=== PATIENT | female | born 1960 | race American Indian/Alaskan Native ===

== ENCOUNTER 2017-06-20 16:14 | Emergency (ER) | payer MEDICAID ==
[2017-06-20 16:43] VITALS: BP 165/68
--- NOTE | 2017-06-20 19:06 | Emergency Department Report ---
ED Neck Pain HPI Chief Complaint: Neck Pain/Injury Stated Complaint: BACK PAIN Time Seen by Provider: 06/20/17 18:37 Duration: patient's been having right-sided neck pain radiation to the right arm for approximately a week and a half. Patient's been on tramadol with no improvement of pain. Severity: moderate Mechanism: Unsure Symptoms: Yes Pain with Movement, Yes Radiation to Right Upper Ext, Yes Numbness , No Radiation to Left Upper Ext, No Weakness, No Previous History ED Review of Systems ROS: Stated complaint: BACK PAIN Other details as noted in HPI Comment: All other systems reviewed and negative ED Past Medical Hx - Past Medical History Hx Hypertension: Yes Additional medical history: HIGH CHOLETEROL - Surgical History Additional Surgical History: 2008, torn ligamnet on left side knee. tubal ligation - Social History Smoking Status: Never Smoker Substance Use Type: None - Medications Home Medications: Home Medications Medication Instructions Recorded Confirmed Last Taken Type Amlodipine Besylate [Norvasc] 10 mg PO DAILY 12/20/12 06/15/13 12/18/12 History Ibuprofen [Motrin 800 MG tab] 800 mg PO TID PRN 12/20/12 06/15/13 12/19/12 History Lisinopril [Zestril TAB] 20 mg PO QDAY 12/20/12 06/15/13 12/18/12 History Ciprofloxacin HCl [Cipro] 500 mg PO Q12H #6 tab 06/15/13 Unknown Rx HYDROcodone/APAP 5-325 [[place] 1 each PO Q6HR PRN #15 tablet 06/15/13 Unknown Rx 5/325 mg] Methocarbamol [Robaxin] 750 mg PO BID #14 tab 06/15/13 Unknown Rx Clindamycin [Clindamycin CAP] 300 mg PO Q6HR #28 cap 10/03/15 Unknown Rx Ketorolac [Toradol] 10 mg PO Q6H PRN #20 tablet 10/03/15 Unknown Rx Silver Sulfadiazine 400 gm TP BID #1 cream..g. 10/03/15 Unknown Rx HYDROcodone/APAP 7.5-325 [[place] 1 each PO Q8HR PRN #10 tablet 02/18/16 Unknown Rx 7.5-325 mg TAB] Ibuprofen [Motrin] 800 mg PO Q8HR PRN #14 tablet 02/18/16 Unknown Rx HYDROcodone/APAP 5-325 [[place] 1 each PO Q6HR PRN #12 tablet 06/20/17 Unknown Rx 5/325] Ibuprofen [Motrin] 800 mg PO Q8HR PRN #20 tablet 06/20/17 Unknown Rx Neck Pain Exam - Exam General: Vital signs noted. No distress. Alert and acting appropriately. HEENT: No Facial Pain, No Scalp Tenderness, No Contusion, No Abrasion, No Laceration Neck Pain: No Midline Tenderness, No Right Paraspinal Tenderness, No Left Paraspinal Tenderness, No Right Trapezius Tenderness, No Left Trapezius Tenderness, No Pain with Rotation Right, No Pain with Rotation Left, No Pain with Extension, No Pain with Flexion, No pain with R Lateral Flexion, No Pain with L Lateral Flexion Chest: Yes Clear Lung Sounds, No Pain with Respirations Heart: Yes Regular, No Murmur Back: No Thoracic Tenderness, No Lumbar Tenderness Neuro: No Numbness, No Weakness, No Normal Reflexes, No Radicular Deficits ED Course Vital Signs 06/20/17 16:39 Temperature 97.9 F Pulse Rate 97 H Respiratory 16 Rate Blood Pressure 165/68 O2 Sat by Pulse 95 Oximetry ED Medical Decision Making - Medical Decision Making Patient does have a cervical radiculopathy-type symptoms. Patient is diabetic and cannot get steroids. Patient be started on stronger pain meds but will be referred to orthopedics Critical care attestation.: If time is entered above; I have spent that time in minutes in the direct care of this critically ill patient, excluding procedure time. ED Disposition Clinical Impression: Cervical radiculopathy Disposition: TO HOME OR SELFCARE Is pt being admited?: No Does the pt Need Aspirin: No Condition: Stable Instructions: Cervical Radiculopathy (ED) Prescriptions: HYDROcodone/APAP 5-325 [[place] 5/325] 1 each PO Q6HR PRN #12 tablet PRN Reason: Pain Ibuprofen [Motrin] 800 mg PO Q8HR PRN #20 tablet PRN Reason: Pain Referrals: YARELIS YANG MD [Staff Physician] - 3-5 Days
[2017-06-20] MEDS ORDERED: TORADOL IM ONE (19:07)
== END 2017-06-20 19:13 | disposition home or self-care (01) ==
LOC: ED 16:14
DX: M54.12 Radiculopathy, cervical region (principal); I10 Essential (primary) hypertension; E78.00 Pure hypercholesterolemia, unspecified; Z98.51 Tubal ligation status
CPT/HCPCS: 99282

== ENCOUNTER 2017-06-30 12:48 | Outpatient (CLI) | payer MEDICAID ==
--- NOTE | 2017-06-30 14:35 | XRay Report ---
RIGHT SHOULDER, 3 VIEWS: HISTORY: Shoulder pain, arm pain. Normal bone mineralization. There is moderate acromioclavicular osteoarthritis. Minimal osteoarthritic changes at the glenohumeral joint. No evidence for fracture, dislocation or bone lesion. The humeral head appears slightly low riding with respect to the glenoid of the right scapula. This could indicate laxity of the joint space or joint effusion. IMPRESSION: Osteoarthritis. Low riding humeral head as described above. Please correlate with the patient. This could be further evaluated with MRI right shoulder if needed.
--- NOTE | 2017-07-01 00:38 | XRay Report ---
FINAL REPORT PROCEDURE: XR SPINE CERVICAL 2-3V TECHNIQUE: Cervical spine radiographs, minimum of four views, including AP, lateral, swimmer's, and odontoid views. HISTORY: Cervical radicular pain. COMPARISON: No prior studies are available for comparison. FINDINGS: Alignment: Minimal retrolisthesis at C2-3 which is not appreciated on swimmer's view. Vertebral body heights/Disk spaces: Moderate bridging osteophytes at C5-6. Smaller osteophytes at other levels. Fracture(s): Subtle lucency about the dens on lateral view, not included on swimmer's view and difficult to appreciate on open-mouth odontoid view. Neural foramina: Normal. Facets: Normal. Bone mineralization: Normal. Other: Dental cavities. IMPRESSION: Degenerative changes of the cervical spine. Possible subtle lucency through the dens on lateral view, could be overlying shadows and patient positioning. Consider other etiology including os odontoideum. Recommend further characterization including CT scan or MRI if there is continued clinical concern for posttraumatic etiology (and if patient has no contraindication to MRI). Dental cavities, consider dental consultation.
== END 2017-06-30 12:49 | disposition home or self-care (01) ==
LOC: XRAY 12:48
PROVIDERS: ATTEND Internal Medicine
DX: M19.011 Primary osteoarthritis, right shoulder (principal); M54.12 Radiculopathy, cervical region; M47.892 Other spondylosis, cervical region
CPT/HCPCS: 72040

== ENCOUNTER 2017-09-25 10:48 | Outpatient (CLI) | payer MEDICAID ==
--- NOTE | 2017-09-25 14:11 | XRay Report ---
RIGHT HAND, 3 views: History: Pain in right hand. The bony architecture is intact. Bony alignment is normal. No soft tissue abnormalities are seen. The joint spaces appear preserved. IMPRESSION: Unremarkable right hand films.
== END 2017-09-25 10:49 | disposition home or self-care (01) ==
LOC: XRAY 10:48
PROVIDERS: ATTEND Orthopaedic Surgery
DX: M79.641 Pain in right hand (principal); I10 Essential (primary) hypertension

== ENCOUNTER 2019-01-19 17:51 | Emergency (ER) | payer MEDICAID ==
--- NOTE | 2019-01-19 19:20 | Event Note ---
ED Screening Note Date of service: 01/19/19 Time: 19:04 ED Screening Note: 58 y o female presents with intermittent dizziness x 2 weeks pmh : HTN, DM This initial assessment/diagnostic orders/clinical plan/treatment(s) is/are subject to change based on patients health status, clinical progression and re- assessment by fellow clinical providers in the ED. Further treatment and workup at subsequent clinical providers discretion. Patient/guardian urged not to elope from the ED as their condition may be serious if not clinically assessed and managed. Initial orders include: labs
[2019-01-19 19:49] LABS: Basophils # (Auto) 0.1 K/mm3 (0.0-0.1); Basophils % (Auto) 0.5 % (0.0-1.8); Eosinophils # (Auto) 0.2 K/mm3 (0.0-0.4); Eosinophils % (Auto) 1.5 % (0.0-4.3); Hematocrit 37.4 % (30.3-42.9); Hemoglobin 11.7 gm/dl (10.1-14.3); Lymphocytes # (Auto) 4.4 K/mm3 (1.2-5.4); Lymphocytes % (Auto) 36.3 % (13.4-35.0); Mean Corpuscular HGB Conc 31 % (30-34); Mean Corpuscular Volume 77 fl (79-97); Monocytes # (Auto) 0.9 K/mm3 (0.0-0.8); Monocytes % (Auto) 7.8 % (0.0-7.3); Platelet Count 480 K/mm3 (140-440); Red Blood Count 4.84 M/mm3 (3.65-5.03); Red Cell Distribution Width 14.8 % (13.2-15.2)
[2019-01-19 20:07] LABS: Alanine Aminotransferase 14 units/L (7-56); Albumin 3.8 g/dL (3.9-5); BUN/Creatinine Ratio 24; Blood Urea Nitrogen 17 mg/dL (7-17); Calcium 9.2 mg/dL (8.4-10.2); Hemolysis Index 7
--- NOTE | 2019-01-19 20:39 | Emergency Department Report ---
ED General Adult HPI - General Chief complaint: Dizziness Stated complaint: DIZZINESS/FAINT Time Seen by Provider: 01/19/19 19:04 Source: patient Mode of arrival: Ambulatory Limitations: No Limitations - History of Present Illness Initial comments: The patient presents to the emergency department with a chief complaint of dizziness that started 2 weeks ago. Patient states that she becomes dizzy when she stands from either lying or sitting. Patient states what she standing and gathered susceptible dizziness goes away. Patient states she noticed the dizziness started after her blood pressure medications were increased. Patient sees Dr. Denson and her metoprolol was increased and she was also started on Topiramate a week prior to her symptoms starting. She denies any chest pain, heart palpitations, shortness of breath, abdominal pain, or headache. -: Gradual Severity scale (0 -10): 0 Consistency: constant Improves with: rest Worsens with: movement Associated Symptoms: denies other symptoms Treatments Prior to Arrival: none - Related Data Home Medications Medication Instructions Recorded Confirmed Last Taken Amlodipine Besylate [Norvasc] 10 mg PO DAILY 12/20/12 06/15/13 12/18/12 Ibuprofen [Motrin 800 MG tab] 800 mg PO TID PRN 12/20/12 06/15/13 12/19/12 Lisinopril [Zestril TAB] 20 mg PO QDAY 12/20/12 06/15/13 12/18/12 Previous Rx's Medication Instructions Recorded Last Taken Type Ciprofloxacin HCl [Cipro] 500 mg PO Q12H #6 tab 06/15/13 Unknown Rx HYDROcodone/APAP 5-325 [[place] 1 each PO Q6HR PRN #15 tablet 06/15/13 Unknown Rx 5/325 mg] methOCARBAMOL [Robaxin] 750 mg PO BID #14 tab 06/15/13 Unknown Rx Clindamycin [Clindamycin CAP] 300 mg PO Q6HR #28 cap 10/03/15 Unknown Rx Ketorolac [Toradol] 10 mg PO Q6H PRN #20 tablet 10/03/15 Unknown Rx Silver Sulfadiazine 400 gm TP BID #1 cream..g. 10/03/15 Unknown Rx HYDROcodone/APAP 7.5-325 [[place] 1 each PO Q8HR PRN #10 tablet 02/18/16 Unknown Rx 7.5-325 mg TAB] Ibuprofen [Motrin] 800 mg PO Q8HR PRN #14 tablet 02/18/16 Unknown Rx HYDROcodone/APAP 5-325 [[place] 1 each PO Q6HR PRN #12 tablet 06/20/17 Unknown Rx 5/325] Ibuprofen [Motrin] 800 mg PO Q8HR PRN #20 tablet 06/20/17 Unknown Rx Meclizine [Antivert] 25 mg PO TID PRN #30 tablet 01/19/19 Unknown Rx Allergies Allergy/AdvReac Type Severity Reaction Status Date / Time No Known Allergies Allergy Verified 06/15/13 09:18 ED Review of Systems ROS: Stated complaint: DIZZINESS/FAINT Other details as noted in HPI Comment: All other systems reviewed and negative Constitutional: denies: chills, fever Eyes: denies: eye pain, eye discharge, vision change ENT: denies: ear pain, throat pain Respiratory: denies: cough, shortness of breath, wheezing Cardiovascular: denies: chest pain, palpitations Endocrine: no symptoms reported Gastrointestinal: denies: abdominal pain, nausea, diarrhea Genitourinary: denies: urgency, dysuria, discharge Musculoskeletal: denies: back pain, joint swelling, arthralgia Skin: denies: rash, lesions Neurological: denies: headache, weakness, paresthesias Psychiatric: denies: anxiety, depression Hematological/Lymphatic: denies: easy bleeding, easy bruising ED Past Medical Hx - Past Medical History Previous Medical History?: Yes Hx Hypertension: Yes Additional medical history: HIGH CHOLETEROL - Surgical History Past Surgical History?: Yes Additional Surgical History: 2008, torn ligamnet on left side knee. tubal ligation - Social History Smoking Status: Never Smoker Substance Use Type: None - Medications Home Medications: Home Medications Medication Instructions Recorded Confirmed Last Taken Type Amlodipine Besylate [Norvasc] 10 mg PO DAILY 12/20/12 06/15/13 12/18/12 History Ibuprofen [Motrin 800 MG tab] 800 mg PO TID PRN 12/20/12 06/15/13 12/19/12 History Lisinopril [Zestril TAB] 20 mg PO QDAY 12/20/12 06/15/13 12/18/12 History Ciprofloxacin HCl [Cipro] 500 mg PO Q12H #6 tab 06/15/13 Unknown Rx HYDROcodone/APAP 5-325 [[place] 1 each PO Q6HR PRN #15 tablet 06/15/13 Unknown Rx 5/325 mg] methOCARBAMOL [Robaxin] 750 mg PO BID #14 tab 06/15/13 Unknown Rx Clindamycin [Clindamycin CAP] 300 mg PO Q6HR #28 cap 10/03/15 Unknown Rx Ketorolac [Toradol] 10 mg PO Q6H PRN #20 tablet 10/03/15 Unknown Rx Silver Sulfadiazine 400 gm TP BID #1 cream..g. 10/03/15 Unknown Rx HYDROcodone/APAP 7.5-325 [[place] 1 each PO Q8HR PRN #10 tablet 02/18/16 Unknown Rx 7.5-325 mg TAB] Ibuprofen [Motrin] 800 mg PO Q8HR PRN #14 tablet 02/18/16 Unknown Rx HYDROcodone/APAP 5-325 [[place] 1 each PO Q6HR PRN #12 tablet 06/20/17 Unknown Rx 5/325] Ibuprofen [Motrin] 800 mg PO Q8HR PRN #20 tablet 06/20/17 Unknown Rx Meclizine [Antivert] 25 mg PO TID PRN #30 tablet 01/19/19 Unknown Rx ED Physical Exam - General Limitations: No Limitations General appearance: alert, in no apparent distress - Head Head exam: Present: atraumatic, normocephalic - Eye Eye exam: Present: normal appearance, PERRL, EOMI - ENT ENT exam: Present: mucous membranes moist - Neck Neck exam: Present: normal inspection - Respiratory Respiratory exam: Present: normal lung sounds bilaterally. Absent: respiratory distress - Cardiovascular Cardiovascular Exam: Present: regular rate, normal rhythm. Absent: systolic murmur, diastolic murmur, rubs, gallop - GI/Abdominal GI/Abdominal exam: Present: soft, normal bowel sounds. Absent: distended, tenderness - Extremities Exam Extremities exam: Present: normal inspection - Back Exam Back exam: Present: normal inspection - Neurological Exam Neurological exam: Present: alert, oriented X3, CN II-XII intact, normal gait, reflexes normal, other (finger-nose, idey-sy-jegb, rapid hand movements all normal on exam). Absent: motor sensory deficit - Psychiatric Psychiatric exam: Present: normal affect, normal mood - Skin Skin exam: Present: warm, dry, intact, normal color. Absent: rash ED Course Vital Signs 01/19/19 01/19/19 19:04 20:50 Temperature 98.3 F Pulse Rate 104 H Pulse Rate [ 78 Lying] Respiratory 20 Rate Blood Pressure 129/72 [Left] Blood Pressure 157/76 [Lying] O2 Sat by Pulse 96 Oximetry ED Medical Decision Making - Lab Data Result diagrams: 01/19/19 19:26 01/19/19 19:26 Lab Results 01/19/19 01/19/19 Range/Units 19:26 19:26 WBC 12.1 H (4.5-11.0) K/mm3 RBC 4.84 (3.65-5.03) M/mm3 Hgb 11.7 (10.1-14.3) gm/dl Hct 37.4 (30.3-42.9) % MCV 77 L (79-97) fl MCH 24 L (28-32) pg MCHC 31 (30-34) % RDW 14.8 (13.2-15.2) % Plt Count 480 H (140-440) K/mm3 Lymph % (Auto) 36.3 H (13.4-35.0) % Kaufman % (Auto) 7.8 H (0.0-7.3) % Eos % (Auto) 1.5 (0.0-4.3) % Baso % (Auto) 0.5 (0.0-1.8) % Lymph # 4.4 (1.2-5.4) K/mm3 [place]aufman # 0.9 H (0.0-0.8) K/mm3 Eos # 0.2 (0.0-0.4) K/mm3 Baso # 0.1 (0.0-0.1) K/mm3 Seg Neutrophils % 53.9 (40.0-70.0) % Seg Neutrophils # 6.5 (1.8-7.7) K/mm3 Sodium 140 (137-145) mmol/L Potassium 3.9 (3.6-5.0) mmol/L Chloride 105.5 (98-107) mmol/L Carbon Dioxide 21 L (22-30) mmol/L Anion Gap 17 mmol/L BUN 17 (7-17) mg/dL Creatinine 0.7 (0.7-1.2) mg/dL Estimated GFR > 60 ml/min BUN/Creatinine Ratio 24 % Glucose 84 (65-100) mg/dL Calcium 9.2 (8.4-10.2) mg/dL Total Bilirubin 0.20 (0.1-1.2) mg/dL AST 13 (5-40) units/L ALT 14 (7-56) units/L Alkaline Phosphatase 84 (35-129) units/L Total Protein 7.4 (6.3-8.2) g/dL Albumin 3.8 L (3.9-5) g/dL Albumin/Globulin Ratio 1.1 % - Radiology Data Radiology results: report reviewed - Medical Decision Making Results discussed with patient and her family Distended blood pressures were negative Patient's symptoms improved with Antivert Critical care attestation.: If time is entered above; I have spent that time in minutes in the direct care of this critically ill patient, excluding procedure time. ED Disposition Clinical Impression: Vertigo Disposition: DC-01 TO HOME OR SELFCARE Is pt being admited?: No Does the pt Need Aspirin: No Condition: Stable Instructions: Vertigo (ED) Additional Instructions: return if worse Prescriptions: Meclizine [Antivert] 25 mg PO TID PRN #30 tablet PRN Reason: Vertigo Referrals: PRIMARY CAREMD [Primary Care Provider] - 3-5 Days SAEID PITTS MD [Referring] - 3-5 Days [facility] [Provider Group] - 3-5 Days [facility] [Provider Group] - 3-5 Days Time of Disposition: 22:10
[2019-01-19 20:53] VITALS: BP 157/76
[2019-01-19] MEDS ORDERED: MECLIZINE 25 MG TAB PO ONE (21:08)
--- NOTE | 2019-01-19 22:00 | Cat Scan Report ---
CT head/brain wo con INDICATION / CLINICAL INFORMATION: 58 years Female; dizziness. TECHNIQUE: Routine CT head without contrast. All CT scans at this location are performed using CT dos e reduction for ALARA by means of automated exposure control. COMPARISON: None. FINDINGS: BRAIN / INTRACRANIAL CONTENTS: No acute hemorrhage, mass effect, midline shift, hydrocephalus, or acu te, large territorial infarct. No chronic infarct or focal atrophy. Normal brain volume and ventricul ar/sulcal size for age. No significant white matter abnormality. CRANIOCERVICAL JUNCTION: No significant abnormality. ORBITS: No significant abnormality of visualized orbits. SINUSES / MASTOIDS: No significant abnormality of the visualized paranasal sinuses or mastoid air clifton ls. ADDITIONAL FINDINGS: Subcutaneous sebaceous cyst seen superficial to the right parietal bone-of no cl inical significance. IMPRESSION: 1. No focal mass, hemorrhage, hydrocephalus, or acute, large territorial infarct. Signer Name: Orlando Ruvalcaba MD, III Signed: 01/19/2019 9:56 PM Workstation Name: [id number]
== END 2019-01-19 22:27 | disposition home or self-care (01) ==
LOC: ED 17:51
DX: R42 Dizziness and giddiness (principal); I10 Essential (primary) hypertension; E78.00 Pure hypercholesterolemia, unspecified; Z98.51 Tubal ligation status; Z79.1 Long term (current) use of non-steroidal anti-inflammatories (NSAID); Z79.899 Other long term (current) drug therapy
CPT/HCPCS: 36415; 70450; 80053; 85025; 99284

== ENCOUNTER 2020-08-22 06:45 | Day surgery (SDC) | payer MEDICAID ==
[2020-08-22] MEDS ORDERED: SODIUM CHLORIDE 0.9% 1000 ML 1,000 ML IV SCH (07:00)
--- NOTE | 2020-08-22 07:48 | Anesthesia Consultation ---
Anesthesia Consult and Med Hx Date of service: 08/22/20 - Airway Anesthetic Teeth Evaluation: Poor (Multiple missing teeth) ROM Head & Neck: Adequate Mental/Hyoid Distance: Adequate Mallampati Class: Class II Intubation Access Assessment: Probably Good - Pulmonary Exam CTA: Yes - Pre-Operative Health Status ASA Pre-Surgery Classification: ASA3 Proposed Anesthetic Plan: MAC - Pulmonary Hx Smoking: No Hx Asthma: Yes Hx Respiratory Symptoms: No SOB: Yes COPD: No Home Oxygen Therapy: Yes (Since recovery from COVID-19 one year ago.) Hx Sleep Apnea: Yes (On CPAP machine ) - Cardiovascular System Hx Hypertension: Yes Hx Heart Attack/AMI: No Hx Angina: No Hx Pacemaker: No - Central Nervous System Hx Neuromuscular Disorder: Yes (Sciatic neuropathy, ) Hx Seizures: No Hx Back Pain: Yes (Degenerative joint disease) - Gastrointestinal Hx Ulcer: No Hx Gastroesophageal Reflux Disease: No - Endocrine Hx Renal Disease: No Hx Liver Disease: No Hx Insulin Dependent Diabetes: No Hx Non-Insulin Dependent Diabetes: Yes Hx Thyroid Disease: No - Hematic Hx Anemia: No Hx Sickle Cell Disease: No - Other Systems Hx Alcohol Use: No Hx Substance Use: No Hx Obesity: Yes (BMI 46.6) - Additional Comments Anesthesia Medical History Comments: Patient denies previous anesthesia complication
--- NOTE | 2020-08-22 08:17 | Anesthesia Day of Surgery ---
Anesthesia Day of Surgery - Day of Surgery Patient Examined: Yes Patient H&P Reviewed: Yes Patient is NPO: Yes Beta Blockers: No Cardiac Clearance: No Pulmonary Clearance: No Alverto's Test: N/A
== END 2020-08-22 06:46 | disposition home or self-care (01) ==
LOC: GIO 06:45
PROVIDERS: ATTEND Internal Medicine Gastroenterology
DX: Z12.11 Encounter for screening for malignant neoplasm of colon (principal); Z53.8 Procedure and treatment not carried out for other reasons; I10 Essential (primary) hypertension; J45.909 Unspecified asthma, uncomplicated; G47.30 Sleep apnea, unspecified; E66.9 Obesity, unspecified; E11.9 Type 2 diabetes mellitus without complications; Z68.41 Body mass index [BMI] 40.0-44.9, adult
CPT/HCPCS: 82962; J7030

== ENCOUNTER 2020-09-26 06:51 | Day surgery (SDC) | payer MEDICAID ==
[2020-09-26] MEDS ORDERED: SODIUM CHLORIDE 0.9% 1000 ML 1,000 ML IV SCH (07:00)
[2020-09-26] MEDS ORDERED: hydrALAZINE 20 MG/1 ML INJ IV PRN (07:25)
[2020-09-26] MEDS ORDERED: WATER FOR IRRIG STERILE 1,000 ML BOTTLE ONE (07:27)
[2020-09-26] MEDS ORDERED: WATER FOR IRRIG STERILE 250 ML BOTTLE IR ONE (07:27)
[2020-09-26] MEDS ORDERED: hydrALAZINE 20 MG/1 ML INJ ONE (07:40)
[2020-09-26] MEDS ORDERED: LIDOCAINE MPF (2%) 20 MG/1 ML VIAL 5 ML ONE (07:54)
[2020-09-26] MEDS ORDERED: propofoL 200 MG/20 ML VIAL IV ONE (07:56)
[2020-09-26 09:02] VITALS: BP 142/68
== END 2020-09-26 06:52 | disposition home or self-care (01) ==
LOC: GIO 06:51
PROVIDERS: ATTEND Internal Medicine Gastroenterology
DX: Z12.11 Encounter for screening for malignant neoplasm of colon (principal); K57.30 Diverticulosis of large intestine without perforation or abscess without bleeding; G57.00 Lesion of sciatic nerve, unspecified lower limb; M15.9 Polyosteoarthritis, unspecified; I10 Essential (primary) hypertension; J45.909 Unspecified asthma, uncomplicated; G47.30 Sleep apnea, unspecified; E66.9 Obesity, unspecified; E11.9 Type 2 diabetes mellitus without complications; Z79.899 Other long term (current) drug therapy; Z79.84 Long term (current) use of oral hypoglycemic drugs; Z87.01 Personal history of pneumonia (recurrent); Z68.42 Body mass index [BMI] 45.0-49.9, adult
CPT/HCPCS: 45378; 82962; J0360; J2704; J7030